=== PATIENT | female | born 1995 | race Hispanic/Latino ===

== ENCOUNTER 2016-10-24 18:11 | Emergency (ER) | payer MEDICAID ==
[2016-10-24 18:17] VITALS: BMI 37.3
[2016-10-24 18:21] VITALS: BP 127/90; PULSE 98; RESP 18; TEMP 98.6; O2SAT 100
[2016-10-24] MEDS ORDERED: TDAP Vaccine 0.5 mL Syr IM ONE (18:38)
--- NOTE | 2016-10-24 19:51 | ED PDOC ---
Arrival/HPI - General Historian: Patient - History of Present Illness Symptom Onset: Sudden Symptom Course: Unchanged Activities at Onset: Rest Context: Home <Thai Hunt - Last Filed: 10/24/16 19:55> <Mira Spivey PA-C - Last Filed: 10/24/16 20:08> - General Chief Complaint: Abnormal Skin Integrity Time Seen by Provider: 10/24/16 18:34 - History of Present Illness Narrative History of Present Illness (Text): 10/24/16 19:53 A 21 year old female presents to the emergency department complaining a tiny piece of glass embedded on right foot. Patient notes there was a broken glass plate on the floor and didn't notice it. Patient also notes her friend tried to take it out with no success. She reports no other injury, redness, discharge or numbness. Patient tetanus shot not up to date. Patient denies any other complaints at this time. (Thai Hunt) Associated Symptoms (Text): none (Thai Hunt) Past Medical History - Provider Review Nursing Documentation Reviewed: Yes - Infectious Disease Hx of Infectious Diseases: None - Tetanus Immunization Tetanus Immunization: Unknown - Past Medical History Past Medical History: No Previous - Cardiac Hx Cardiac Disorders: No - Pulmonary Hx Respiratory Disorders: No - Neurological Hx Neurological Disorder: No - HEENT Hx HEENT Disorder: No - Renal Hx Renal Disorder: No - Endocrine/Metabolic Hx Endocrine Disorders: Yes Other/Comment: borderline diabetic - Hematological/Oncological Hx Blood Disorders: Yes Hx Anemia: Yes - Integumentary Hx Dermatological Disorder: No - Musculoskeletal/Rheumatological Hx Musculoskeletal Disorders: Yes Other/Comment: left wrist sprain; casted a few years ago - Gastrointestinal Hx Gastrointestinal Disorders: No - Genitourinary/Gynecological Hx Genitourinary Disorders: No - Psychiatric Hx Psychophysiologic Disorder: Yes Hx Bipolar Disorder: Yes Hx Depression: Yes Hx Schizophrenia: Yes Hx Substance Use: No Other/Comment: schizo affective - Past Surgical History Past Surgical History: No Previous - Anesthesia Hx Anesthesia: No - Suicidal Assessment Feels Threatened In Home Enviroment: No <Thai Hunt - Last Filed: 10/24/16 19:55> Family/Social History - Physician Review Nursing Documentation Reviewed: Yes Family/Social History: No Known Family HX Smoking Status: Never Smoked Hx Alcohol Use: No Hx Substance Use: No Hx Substance Use Treatment: No <Thai Hunt - Last Filed: 10/24/16 19:55> Allergies/Home Meds <Thai Hunt - Last Filed: 10/24/16 19:55> <Mira Spivey PA-C - Last Filed: 10/24/16 20:08> Allergies/Adverse Reactions: Allergies No Known Allergies Allergy (Verified 10/24/16 18:16) Home Medications: Home Meds Medication Instructions Recorded Confirmed Benztropine Mesylate [Cogentin] 0.5 mg PO DAILY 04/13/12 10/24/16 Divalproex Sodium [Depakote] 1,000 mg PO QAM 04/13/12 10/24/16 Divalproex Sodium [Depakote] 1,000 mg PO HS 09/24/12 10/24/16 Paliperidone [Invega] 9 mg PO DAILY 01/24/13 10/24/16 Ergocalciferol [Vitamin D] 50,000 unit PO SUN 10/06/13 10/24/16 Lurasidone HCl [Latuda] 80 mg PO HS 10/06/13 10/24/16 Review of Systems - Physician Review All systems were reviewed & negative as marked: Yes - Review of Systems Constitutional: absent: Fevers Skin: absent: Other (R foot numbness, redness) Neurological: absent: Headache <Thai Hunt - Last Filed: 10/24/16 19:55> Physical Exam Vital Signs Reviewed: Yes Temperature: Afebrile Blood Pressure: Normal Pulse: Regular Respiratory Rate: Normal Appearance: Positive for: Well-Appearing, Non-Toxic, Comfortable Pain Distress: None Mental Status: Positive for: Alert and Oriented X 3 - Systems Exam Head: Present: Atraumatic, Normocephalic Pupils: Present: PERRL Extroacular Muscles: Present: EOMI Conjunctiva: Present: Normal Mouth: Present: Moist Mucous Membranes Neck: Present: Normal Range of Motion Respiratory/Chest: Present: Clear to Auscultation, Good Air Exchange. No: Respiratory Distress, Accessory Muscle Use Cardiovascular: Present: Regular Rate and Rhythm, Normal S1, S2. No: Murmurs Abdomen: Present: Normal Bowel Sounds. No: Tenderness, Distention, Peritoneal Signs Back: Present: Normal Inspection Upper Extremity: Present: Normal Inspection. No: Cyanosis, Edema Lower Extremity: Present: Normal Inspection. No: Edema Neurological: Present: GCS=15, CN II-XII Intact, Speech Normal Skin: Present: Warm, Dry, Normal Color. No: Rashes Psychiatric: Present: Alert, Oriented x 3, Normal Insight, Normal Concentration <Thai Hunt - Last Filed: 10/24/16 19:55> - Systems Exam Lower Extremity: Present: Other (R foot: (-) puncture wound noted, (-) FB seen, (-) tenderness, (-) edema, (-) erythema, (-) visible wound) <Mira Spivey PA-C - Last Filed: 10/24/16 20:08> Vital Signs Temp Pulse Resp BP Pulse Ox 10/24/16 18:20 98.6 F 98 H 18 127/90 100 Medical Decision Making <Thai Hunt - Last Filed: 10/24/16 19:55> <Mira Spivey PA-C - Last Filed: 10/24/16 20:08> ED Course and Treatment: 10/24/16 19:48 Impression: A 21 year old female with a tiny piece of glass embedded on right foot. No injury, redness, discharge, numbness. On physical exam, no glass spotted. Differential Diagnosis included but are not limited to: Plan: -- Radiology right foot -- POC urine preg, Boostrix Vaccine Inj -- Reassess and disposition Prior Visits: Notes and results from previous visits were reviewed. Patient last reported to the emergency department on 09/12/15 for evaluation of right lower leg cyst pain. Patient was advised to follow up with Dr. Santillan and discharged. Progress Notes: On re-evaluation, patient feels better and is in no acute distress. I have discussed the results and plan with the patient, who expresses understanding. Patient in agreement with plan to be discharged home. Patient is stable for discharge. Patient was instructed to follow up with physician or return if symptoms worsen or new concerning symptoms arise. (Thai Hunt) XR right foot : No foreign body, no fracture, no dislocation, as read by PA Patient advised that official radiology read of XR is still pending and will call the patient if there is any discrepancy within 24 hours. X-ray results discussed with the patient in great detail. Advised to return to the emergency room at any time for any new or worsening symptoms. (Mira Spivey PA-C) - RAD Interpretation Radiology Orders: 10/24/16 18:37 FOOT RIGHT 3 VIEWS ROUTINE [RAD] Stat - Medication Orders Current Medication Orders: Discontinued Medications Tetanus/Reduced Diphtheria/Acell Pertussis (Boostrix Vaccine Inj) 0.5 ml IM .ONCE ONE Stop: 10/24/16 18:39 Last Admin: 10/24/16 18:56 Dose: 0.5 ml - Scribe Statement The provider has reviewed the documentation as recorded by the Scribe <Thai Hunt - Last Filed: 10/24/16 19:55> - PA / SUPERVISOR VENEER / Resident Statement / has reviewed & agrees with the documentation as recorded. <Mira Spivey PA-C - Last Filed: 10/24/16 20:08> - Scribe Statement Meche Murillo Provider Scribe Attestation: All medical record entries made by the Scribe were at my direction and personally dictated by me. I have reviewed the chart and agree that the record accurately reflects my personal performance of the history, physical exam, medical decision making, and the department course for this patient. I have also personally directed, reviewed, and agree with the discharge instructions and disposition. (Thai Hunt) Disposition/Present on Arrival - Present on Arrival History of DVT/PE: No History of Uncontrolled Diabetes: No Urinary Catheter: No History of Decub. Ulcer: No History Surgical Site Infection Following: None <Thai Hunt - Last Filed: 10/24/16 19:55> - Present on Arrival Any Indicators Present on Arrival: No History of DVT/PE: No History of Uncontrolled Diabetes: No Urinary Catheter: No History of Decub. Ulcer: No - Disposition Have Diagnosis and Disposition been Completed?: Yes Disposition Time: 19:30 Patient Plan: Discharge <Mira Spivey PA-C - Last Filed: 10/24/16 20:08> - Disposition Diagnosis: Foot pain, right Disposition: HOME/ ROUTINE Condition: GOOD Discharge Instructions (ExitCare): Soft Tissue Foreign Body (ED), Puncture Wound (ED) Print Language: TUNISIAN Additional Instructions: Thank you for letting us take care of you today. You were treated for puncture wound, concern for soft tissue foreign body. The emergency medical care you received today was directed at your acute symptoms. It may take several days for your symptoms to resolve. Return to the Emergency Department if your symptoms worsen, do not improve, or if you have any other problems. Please contact your doctor in 2 days for re-evaluation and follow up. Bring any paperwork you were given at discharge with you along with any medications you are taking to your follow up visit. Our treatment cannot replace ongoing medical care by a primary care provider (PCP) outside of the emergency department. Thank you for allowing the [facility] team to be part of your care today. Forms: WORK NOTE
--- NOTE | 2016-10-25 06:41 | RAD ---
PROCEDURE: Right Foot Radiographs. HISTORY: r/o FB COMPARISON: Right foot 06/18/2014 FINDINGS: BONES: Normal. No fracture. JOINTS: Normal. SOFT TISSUES: Normal. OTHER FINDINGS: None. IMPRESSION: Normal right foot radiographs.
== END 2016-10-24 19:52 | disposition home or self-care (01) ==
LOC: ED 18:11
DX: M79.671 Pain in right foot (principal); Z23 Encounter for immunization

== ENCOUNTER 2016-12-17 12:48 | Emergency (ER) | payer MEDICAID ==
[2016-12-17 12:55] VITALS: TEMP 98.5; O2SAT 98; BMI 36.6
--- NOTE | 2016-12-17 13:19 | ED PDOC ---
Arrival/HPI <Francisco Schulz T - Last Filed: 12/17/16 13:33> - General Historian: Patient <Gumaro Bronson A - Last Filed: 12/17/16 14:52> - General Chief Complaint: Lower Extremity Problem/Injury Time Seen by Provider: 12/17/16 12:53 - History of Present Illness Narrative History of Present Illness (Text): 12/17/16 13:16 21yo female who present with complaint of left ankle pain x one week. States she thinks she might have hit her ankle somewhere, when she had "charliehorse in the same leg a week ago". Did not take any medication. Pain with ambulation. Denies any other complaint. (Gumaro Bronson A) Past Medical History - Provider Review Nursing Documentation Reviewed: Yes - Infectious Disease Hx of Infectious Diseases: None - Tetanus Immunization Tetanus Immunization: Unknown - Past Medical History Past Medical History: No Previous - Cardiac Hx Cardiac Disorders: No - Pulmonary Hx Respiratory Disorders: Yes Hx Asthma: Yes - Neurological Hx Neurological Disorder: No - HEENT Hx HEENT Disorder: No - Renal Hx Renal Disorder: No - Endocrine/Metabolic Hx Endocrine Disorders: Yes Other/Comment: borderline diabetic - Hematological/Oncological Hx Blood Disorders: No Hx Anemia: No - Integumentary Hx Dermatological Disorder: No - Musculoskeletal/Rheumatological Hx Musculoskeletal Disorders: No - Gastrointestinal Hx Gastrointestinal Disorders: No - Genitourinary/Gynecological Hx Genitourinary Disorders: No - Psychiatric Hx Psychophysiologic Disorder: Yes Hx Bipolar Disorder: No Hx Depression: No Hx Schizophrenia: Yes Hx Substance Use: No - Past Surgical History Past Surgical History: No Previous - Surgical History Other/Comment: skin tumor removed from R go. - Anesthesia Hx Anesthesia: No - Suicidal Assessment Feels Threatened In Home Enviroment: No <Gumaro Bronson A - Last Filed: 12/17/16 14:52> Family/Social History - Physician Review Nursing Documentation Reviewed: Yes Family/Social History: Unknown Family HX Smoking Status: Never Smoked Hx Alcohol Use: No Hx Substance Use: No Hx Substance Use Treatment: No <Gumaro Bronson A - Last Filed: 12/17/16 14:52> Allergies/Home Meds <Francisco Schulz T - Last Filed: 12/17/16 13:33> <Gumaro Bronson A - Last Filed: 12/17/16 14:52> Allergies/Adverse Reactions: Allergies No Known Allergies Allergy (Verified 12/17/16 12:56) Home Medications: Home Meds Medication Instructions Recorded Confirmed Benztropine Mesylate [Cogentin] 0.5 mg PO DAILY 04/13/12 12/17/16 Divalproex Sodium [Depakote] 1,000 mg PO QAM 04/13/12 12/17/16 Divalproex Sodium [Depakote] 1,000 mg PO HS 09/24/12 12/17/16 Paliperidone [Invega] 9 mg PO DAILY 01/24/13 12/17/16 Depakote 250 mg PO QPM 02/03/13 12/17/16 Depakote 500 mg PO TID 02/03/13 12/17/16 Invega 12 mg PO DAILY 02/03/13 12/17/16 Benztropine Mesylate [Cogentin] 1 tab PO DAILY 06/01/13 12/17/16 Meloxicam [Meloxicam] 1 tab PO BID 06/01/13 12/17/16 Ergocalciferol [Vitamin D] 50,000 unit PO SUN 10/06/13 12/17/16 Lurasidone HCl [Latuda] 80 mg PO HS 10/06/13 12/17/16 Review of Systems - Physician Review All systems were reviewed & negative as marked: Yes - Review of Systems Constitutional: Normal Eyes: Normal ENT: Normal Respiratory: Normal Cardiovascular: Normal Gastrointestinal: Normal Genitourinary Female: Normal Musculoskeletal: Arthralgias (LEft ankle) Skin: Normal Neurological: Normal Endocrine: Normal Hemo/Lymphatic: Normal Psychiatric: Normal <Diru,Happiness A - Last Filed: 12/17/16 14:52> Physical Exam Vital Signs Reviewed: Yes Temperature: Afebrile Blood Pressure: Normal Pulse: Regular Respiratory Rate: Normal Appearance: Positive for: Well-Appearing, Non-Toxic, Comfortable Pain Distress: None Mental Status: Positive for: Alert and Oriented X 3 - Systems Exam Head: Present: Atraumatic, Normocephalic Pupils: Present: PERRL Extroacular Muscles: Present: EOMI Conjunctiva: Present: Normal Mouth: Present: Moist Mucous Membranes Neck: Present: Normal Range of Motion Respiratory/Chest: Present: Clear to Auscultation, Good Air Exchange. No: Respiratory Distress, Accessory Muscle Use Cardiovascular: Present: Regular Rate and Rhythm, Normal S1, S2. No: Murmurs Abdomen: Present: Normal Bowel Sounds. No: Tenderness, Distention, Peritoneal Signs Back: Present: Normal Inspection Upper Extremity: Present: Normal Inspection. No: Cyanosis, Edema Lower Extremity: Present: NORMAL PULSES, Normal ROM, Tenderness (LEft ankle), Neurovascularly Intact. No: Edema, Swelling, Erythema, Deformity, Temperature Abnormalties Neurological: Present: GCS=15, CN II-XII Intact, Speech Normal Skin: Present: Warm, Dry, Normal Color. No: Rashes Psychiatric: Present: Alert, Oriented x 3, Normal Insight, Normal Concentration <Gumaro Bronson A - Last Filed: 12/17/16 14:52> Vital Signs Temp Pulse Resp BP Pulse Ox 12/17/16 12:55 98.5 F 99 H 19 137/80 98 Medical Decision Making <Francisco Schulz Leda - Last Filed: 12/17/16 13:33> <Gumaro Bronson A - Last Filed: 12/17/16 14:52> ED Course and Treatment: 12/17/16 13:34 Left ankle xray - No acute fracture/dislcoation Result was DW the pt. She was DC home with ibuprofen rx and referred to her PMD. (Gumaro Bronson A) - RAD Interpretation Radiology Orders: 12/17/16 13:14 ANKLE LEFT 3 VIEWS ROUTINE [RAD] Stat - Medication Orders Current Medication Orders: Discontinued Medications Ibuprofen (Motrin Tab) 600 mg PO STAT STA Stop: 12/17/16 13:16 - PA / HYDRO EXCAVATION OPERATOR / Resident Statement CHIP has reviewed & agrees with the documentation as recorded. CHIP has examined the patient and agrees with the treatment plan. <Francisco Schulz - Last Filed: 12/17/16 13:33> Disposition/Present on Arrival <[facility] Hospital[facility] - Last Filed: 12/17/16 13:33> - Present on Arrival Any Indicators Present on Arrival: No History of DVT/PE: No History of Uncontrolled Diabetes: No Urinary Catheter: No History of Decub. Ulcer: No History Surgical Site Infection Following: None - Disposition Have Diagnosis and Disposition been Completed?: Yes Disposition Time: 14:30 Patient Plan: Discharge <Gumaro Bronson A - Last Filed: 12/17/16 14:52> - Disposition Diagnosis: Sprain of ankle Disposition: HOME/ ROUTINE Patient Problems: Current Active Problems Problem Status Onset Sprain of ankle Acute Condition: STABLE Discharge Instructions (ExitCare): Arthralgia (ED) Additional Instructions: Follow up with your Doctor Return to ED for any new or worsening symptoms Prescriptions: Ibuprofen [Motrin Tab] 600 mg PO Q6 #20 tab Referrals: PCP,NO [Primary Care Provider] - Follow up with primary
--- NOTE | 2016-12-17 14:47 | RAD ---
PROCEDURE: Left Ankle Radiographs. HISTORY: ankle pain COMPARISON: None FINDINGS: BONES: Normal. No fracture. JOINTS: Normal. No osteoarthritis. Ankle mortise maintained. Talar dome intact SOFT TISSUES: Normal. OTHER FINDINGS: None. IMPRESSION: Normal left ankle radiographs.
[2016-12-17 14:59] VITALS: BP 135/77; PULSE 87; RESP 18
== END 2016-12-17 14:58 | disposition home or self-care (01) ==
LOC: ED 12:48
DX: S93.402A Sprain of unspecified ligament of left ankle, initial encounter (principal); X58.XXXA Exposure to other specified factors, initial encounter; Y92.9 Unspecified place or not applicable

== ENCOUNTER 2017-01-09 13:17 | Emergency (ER) | payer MEDICAID ==
[2017-01-09 13:18] VITALS: BMI 36.6
[2017-01-09 13:21] VITALS: BP 124/85; PULSE 104; RESP 20; TEMP 98.7; O2SAT 99
--- NOTE | 2017-01-09 13:43 | ED PDOC ---
Arrival/HPI - General Historian: Patient - History of Present Illness Symptom Onset: Gradual Symptom Course: Worsening Quality: Aching Severity Level: 4 Activities at Onset: Eating <Rg Spence - Last Filed: 01/09/17 13:51> <Wilbert Moreno - Last Filed: 01/09/17 14:06> - General Chief Complaint: ENT Problem Time Seen by Provider: 01/09/17 13:25 - History of Present Illness Narrative History of Present Illness (Text): 01/09/17 13:47 21yo F with PMHx of schizoaffective disorder here for evaluation of sore throat. Patient states that the sore throat started last night after she ate dinner. She went to sleep and woke up with worse sore throat. She states that she has trouble with swallowing solids. Denies any problem with liquids. Denies fevers or chills. No chest pain, no Shortness of breath. No Nausea, no Vomiting , no abd pain. No diarrhea. No headaches.Denies any sick contacts. (Rg Spence) Past Medical History - Provider Review Nursing Documentation Reviewed: Yes - Infectious Disease Hx of Infectious Diseases: None - Tetanus Immunization Tetanus Immunization: Unknown - Past Medical History Past Medical History: No Previous - Cardiac Hx Cardiac Disorders: No - Pulmonary Hx Respiratory Disorders: Yes Hx Asthma: Yes - Neurological Hx Neurological Disorder: No - HEENT Hx HEENT Disorder: No - Renal Hx Renal Disorder: No - Endocrine/Metabolic Hx Endocrine Disorders: Yes Other/Comment: borderline diabetic - Hematological/Oncological Hx Blood Disorders: No Hx Anemia: No - Integumentary Hx Dermatological Disorder: No - Musculoskeletal/Rheumatological Hx Musculoskeletal Disorders: No - Gastrointestinal Hx Gastrointestinal Disorders: No - Genitourinary/Gynecological Hx Genitourinary Disorders: No - Psychiatric Hx Psychophysiologic Disorder: Yes Hx Bipolar Disorder: No Hx Depression: No Hx Schizophrenia: Yes Hx Substance Use: No - Past Surgical History Past Surgical History: No Previous - Surgical History Other/Comment: skin tumor removed from R go. - Anesthesia Hx Anesthesia: No - Suicidal Assessment Feels Threatened In Home Enviroment: No <Rg Spence - Last Filed: 01/09/17 13:51> Family/Social History - Physician Review Nursing Documentation Reviewed: Yes Family/Social History: No Known Family HX Smoking Status: Never Smoked Hx Alcohol Use: No Hx Substance Use: No Hx Substance Use Treatment: No <Rg Spence - Last Filed: 01/09/17 13:51> Allergies/Home Meds <Rg Spence - Last Filed: 01/09/17 13:51> <Wilbert Moreno - Last Filed: 01/09/17 14:06> Allergies/Adverse Reactions: Allergies No Known Allergies Allergy (Verified 12/17/16 12:56) Home Medications: Home Meds Medication Instructions Recorded Confirmed Benztropine Mesylate [Cogentin] 0.5 mg PO DAILY 04/13/12 01/09/17 Divalproex Sodium [Depakote] 1,000 mg PO QAM 04/13/12 01/09/17 Divalproex Sodium [Depakote] 1,000 mg PO HS 09/24/12 01/09/17 Paliperidone [Invega] 9 mg PO DAILY 01/24/13 01/09/17 Depakote 250 mg PO QPM 02/03/13 01/09/17 Depakote 500 mg PO TID 02/03/13 01/09/17 Invega 12 mg PO DAILY 02/03/13 01/09/17 Benztropine Mesylate [Cogentin] 1 tab PO DAILY 06/01/13 01/09/17 Meloxicam [Meloxicam] 1 tab PO BID 06/01/13 01/09/17 Ergocalciferol [Vitamin D] 50,000 unit PO SUN 10/06/13 01/09/17 Lurasidone HCl [Latuda] 80 mg PO HS 10/06/13 01/09/17 Review of Systems - Physician Review All systems were reviewed & negative as marked: Yes - Review of Systems Constitutional: absent: Fevers Respiratory: absent: SOB, Cough, Wheezing Cardiovascular: absent: Chest Pain, Edema, Calf Pain, [place] Gastrointestinal: absent: Abdominal Pain, Nausea, Vomiting Genitourinary Female: absent: Dysuria, Frequency Musculoskeletal: absent: Back Pain Neurological: absent: Headache, Dizziness Endocrine: absent: Diaphoresis Psychiatric: absent: Anxiety, Depression <Luanne Spencey - Last Filed: 01/09/17 13:51> Physical Exam Vital Signs Reviewed: Yes Temperature: Afebrile Blood Pressure: Normal Pulse: Tachycardic Respiratory Rate: Normal Appearance: Positive for: Well-Appearing, Non-Toxic, Comfortable Pain Distress: Mild Mental Status: Positive for: Alert and Oriented X 3 - Systems Exam Head: Present: Atraumatic, Normocephalic Extroacular Muscles: Present: EOMI Ears: Present: Normal Mouth: Present: Moist Mucous Membranes, Normal Tounge, Normal Teeth Pharnyx: Present: ERYTHEMA, EXUDATE, TONSILS ENLARGED Neck: Present: Normal Range of Motion, Lymphadenopathy. No: JVD Respiratory/Chest: Present: Clear to Auscultation, Good Air Exchange. No: Respiratory Distress, Accessory Muscle Use, Wheezes Cardiovascular: Present: Normal S1, S2 Abdomen: No: Tenderness, Distention, Rebound, Guarding Back: Present: Normal Inspection Upper Extremity: Present: Normal Inspection. No: Edema Lower Extremity: Present: Normal Inspection. No: Edema, CALF TENDERNESS Neurological: Present: GCS=15 Skin: Present: Warm, Dry, Normal Color. No: Rashes Psychiatric: Present: Alert, Oriented x 3 <Rg Spence - Last Filed: 01/09/17 13:51> Medical Decision Making <Rg Spence - Last Filed: 01/09/17 13:51> <Wilbert Moreno - Last Filed: 01/09/17 14:06> ED Course and Treatment: 01/09/17 13:57 21yo F with Pharyngitis - Centor criteria postive for 3 points - Plan for Discharge on PO Amoxicillin, Ibuprofen and OTC chloraseptic - Discussed plan with patient, who understands and agrees. All questions and concerns addressed. (Rg Spence) Patient Seen With Resident: In agreement with resident note which contains more details about the patient. Patient was seen and evaluated with resident. Came up with plan and treatment together. A 21 year old female with tonsillitis, no evidence of river captain, well appearing, centor score 3 out of 4. Will discharge on amoxicillin and ibuprofen and f/u. (Wilbert Moreno) - PA / CUTLET MAKER PORK / Resident Statement CHIP has reviewed & agrees with the documentation as recorded. CHIP has examined the patient and agrees with the treatment plan. <Rg Spence - Last Filed: 01/09/17 13:51> - Scribe Statement The provider has reviewed the documentation as recorded by the Scribe <Wilbert Moreno - Last Filed: 01/09/17 14:06> - Scribe Statement Meche Murillo Provider Scribe Attestation: All medical record entries made by the Scribe were at my direction and personally dictated by me. I have reviewed the chart and agree that the record accurately reflects my personal performance of the history, physical exam, medical decision making, and the department course for this patient. I have also personally directed, reviewed, and agree with the discharge instructions and disposition. (Wilbert Moreno) Disposition/Present on Arrival - Present on Arrival Any Indicators Present on Arrival: No History of DVT/PE: No History of Uncontrolled Diabetes: No Urinary Catheter: No History of Decub. Ulcer: No History Surgical Site Infection Following: None - Disposition Have Diagnosis and Disposition been Completed?: Yes Disposition Time: 13:36 Patient Plan: Discharge <Rg Spence - Last Filed: 01/09/17 13:51> <Wilbert Moreno - Last Filed: 01/09/17 14:06> - Disposition Diagnosis: Pharyngitis Disposition: HOME/ ROUTINE Patient Problems: Current Active Problems Problem Status Onset Pharyngitis Acute Condition: GOOD Discharge Instructions (ExitCare): Pharyngitis (ED) Additional Instructions: 1. Follow up with your Primary Care Physician BASHIR. 2. Take antibiotics as directed to completion 3. Take Ibuprofen as need for pain relief 4. Use OTC Chloraseptic spray for sore throat as needed for pain relief 5. Stay well hydrated 6. Return to the ER with any concerning or worsening symptoms Prescriptions: Amoxicillin [Amoxil 500 mg Cap] 500 mg PO TID #30 cap Ibuprofen [Motrin Tab] 400 mg PO Q8 PRN #25 tab PRN Reason: Pain, Mild (1-3) Referrals: PCP,NO [Primary Care Provider] - Follow up with primary Forms: Epoch (German)
== END 2017-01-09 14:09 | disposition home or self-care (01) ==
LOC: ED 13:17
DX: J02.9 Acute pharyngitis, unspecified (principal)

== ENCOUNTER 2017-02-16 17:24 | Emergency (ER) | payer MEDICAID ==
[2017-02-16 17:25] VITALS: BMI 36.6
[2017-02-16 17:39] VITALS: TEMP 98.8
--- NOTE | 2017-02-16 18:01 | ED PDOC ---
Arrival/HPI - General Chief Complaint: Female Genitourinary Time Seen by Provider: 02/16/17 17:53 Historian: Patient - History of Present Illness Narrative History of Present Illness (Text): 02/16/17 17:58 This 21 yo female presents to this ED c/o urinary frequency, hematuria, vaginal bleeding x 2 weeks. Patient denies sob, fever, abdominal pain, n/v, or abnormal gait. Time/Duration: Other (see hpi) Context: Home Past Medical History - Provider Review Nursing Documentation Reviewed: Yes - Infectious Disease Hx of Infectious Diseases: None - Tetanus Immunization Tetanus Immunization: Unknown - Past Medical History Past Medical History: No Previous - Cardiac Hx Cardiac Disorders: No - Pulmonary Hx Respiratory Disorders: Yes Hx Asthma: Yes - Neurological Hx Neurological Disorder: No - HEENT Hx HEENT Disorder: No - Renal Hx Renal Disorder: No - Endocrine/Metabolic Hx Endocrine Disorders: Yes Other/Comment: borderline diabetic - Hematological/Oncological Hx Blood Disorders: No Hx Anemia: No - Integumentary Hx Dermatological Disorder: No - Musculoskeletal/Rheumatological Hx Musculoskeletal Disorders: No - Gastrointestinal Hx Gastrointestinal Disorders: No - Genitourinary/Gynecological Hx Genitourinary Disorders: No - Psychiatric Hx Psychophysiologic Disorder: Yes Hx Bipolar Disorder: Yes Hx Depression: No Hx Schizophrenia: Yes Hx Substance Use: No Other/Comment: bipolar paranoid Schizo affective - Past Surgical History Past Surgical History: No Previous - Surgical History Other/Comment: skin tumor removed from R go. - Anesthesia Hx Anesthesia: No - Suicidal Assessment Feels Threatened In Home Enviroment: No Family/Social History - Physician Review Nursing Documentation Reviewed: Yes Family/Social History: Other (non-contributory) Smoking Status: Never Smoked Hx Alcohol Use: No Hx Substance Use: No Hx Substance Use Treatment: No Allergies/Home Meds Allergies/Adverse Reactions: Allergies No Known Allergies Allergy (Verified 02/16/17 17:39) Home Medications: Home Meds Medication Instructions Recorded Confirmed Benztropine Mesylate [Cogentin] 0.5 mg PO DAILY 04/13/12 01/09/17 Paliperidone [Invega] 9 mg PO DAILY 01/24/13 02/16/17 Depakote 500 mg PO BID 02/03/13 01/09/17 Ergocalciferol [Vitamin D] 50,000 unit PO SUN 10/06/13 01/09/17 Lurasidone HCl [Latuda] 80 mg PO HS 10/06/13 01/09/17 Review of Systems - Review of Systems Constitutional: Normal. absent: Fatigue, Weight Change, Fevers Eyes: Normal ENT: Normal Respiratory: Normal Cardiovascular: Normal Gastrointestinal: Normal Genitourinary Female: Dysuria, Frequency, Hematuria, Vaginal Bleeding, Other ( see hpi). absent: Vaginal Discharge Musculoskeletal: Normal Skin: Normal Neurological: Normal Endocrine: Normal Hemo/Lymphatic: Normal Psychiatric: Normal Physical Exam Vital Signs Temp Pulse Resp BP Pulse Ox 02/16/17 18:21 75 18 112/75 98 02/16/17 17:32 98.8 F 89 16 110/70 98 Temperature: Afebrile Blood Pressure: Normal Pulse: Regular Respiratory Rate: Normal Appearance: Positive for: Well-Appearing, Non-Toxic, Comfortable Pain Distress: None Mental Status: Positive for: Alert and Oriented X 3 - Systems Exam Head: Present: Atraumatic, Normocephalic Pupils: Present: PERRL Extroacular Muscles: Present: EOMI Conjunctiva: Present: Normal Mouth: Present: Moist Mucous Membranes Neck: Present: Normal Range of Motion Abdomen: Present: Normal Bowel Sounds. 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 No: Vaginal Bleeding, Vaginal Lesions, Adenexal Tenderness, Adenexal Mass Back: Present: Normal Inspection. No: CVA Tenderness Upper Extremity: Present: Normal Inspection, Normal ROM. No: Cyanosis, Edema Lower Extremity: Present: Normal Inspection, Normal ROM. No: Edema Neurological: Present: GCS=15, CN II-XII Intact, Speech Normal Skin: Present: Warm, Dry, Normal Color. No: Rashes Psychiatric: Present: Alert, Oriented x 3, Normal Insight, Normal Concentration Medical Decision Making - Lab Interpretations Lab Results: Lab Results 02/16/17 18:17: Urine Color Yellow, Urine Appearance Turbid, Urine pH 6.0, Ur Specific [place] 1.025, Urine Protein Trace H, Urine Glucose (UA) Negative, Urine Ketones Trace H, Urine Blood Large H, Urine Nitrate Negative, Urine Bilirubin Negative, Urine Urobilinogen 1.0 H, Ur Leukocyte Esterase Small H, Urine RBC 2 - 5, Urine WBC 5 - 10, Ur Epithelial Cells 10 - 12, Urine Bacteria Few - Medication Orders Current Medication Orders: Discontinued Medications Ceftriaxone Sodium (Rocephin) 250 mg IM STAT STA PRN Reason: Protocol Stop: 02/16/17 18:24 Last Admin: 02/16/17 19:08 Dose: 250 mg Metronidazole (Flagyl) 2,000 mg PO STAT STA PRN Reason: Protocol Stop: 02/16/17 18:25 Last Admin: 02/16/17 19:09 Dose: 2,000 mg Disposition/Present on Arrival - Present on Arrival Any Indicators Present on Arrival: No History of DVT/PE: No History of Uncontrolled Diabetes: No Urinary Catheter: No History of Decub. Ulcer: No History Surgical Site Infection Following: None - Disposition Have Diagnosis and Disposition been Completed?: Yes Diagnosis: Cervicitis Disposition: HOME/ ROUTINE Disposition Time: 19:36 Patient Plan: Discharge Patient Problems: Current Active Problems Problem Status Onset Cervicitis Acute Condition: GOOD Discharge Instructions (ExitCare): Cervicitis (ED) Additional Instructions: Call private doctor for follow up visit in 1-2 days. Take medication as instructed. Review urine test result in 3-5 days with your doctor . Return to emergency if symptoms worsen Prescriptions: Cephalexin [cephalexin] 500 mg PO BID #10 cap Doxycycline Monohydrate 100 mg PO BID #20 tablet Referrals: [facility] [Outside] - [facility] [Outside] - Follow up with primary Forms: [employer] (Bulgarian)
[2017-02-16] MEDS ORDERED: cefTRIAXone (Rocephin) 250 mg Inj IM STA (18:23)
[2017-02-16 18:28] VITALS: RESP 18
[2017-02-16 18:30] LABS: URINE BILIRUBIN NEGATIVE (NEGATIVE); URINE BLOOD LARGE (NEGATIVE); URINE GLUCOSE (UA) NEGATIVE (NEGATIVE); URINE KETONE TRACE mg/dL (NEGATIVE); URINE LEUKOCYTE ESTERASE SMALL Leu/uL (NEGATIVE); URINE PROTEIN TRACE mg/dL (<30 mg/dL)
[2017-02-16 18:33] LABS: URINE APPEARANCE TURBID (CLEAR); URINE COLOR YELLOW (YELLOW)
[2017-02-16 18:36] LABS: URINE BACTERIA FEW (NEG)
[2017-02-16 19:52] VITALS: BP 114/71; PULSE 69; O2SAT 99
== END 2017-02-16 19:53 | disposition home or self-care (01) ==
LOC: ED 17:24
DX: N72 Inflammatory disease of cervix uteri (principal)
CPT/HCPCS: 81001; 87086; 87491; 87591; 96372; 99283; J0696

== ENCOUNTER 2017-02-27 14:31 | Emergency (ER) | payer MEDICAID ==
[2017-02-27 14:47] VITALS: TEMP 98.9; BMI 36.3
[2017-02-27 15:15] LABS: URINE BILIRUBIN NEGATIVE (NEGATIVE); URINE BLOOD NEGATIVE (NEGATIVE); URINE GLUCOSE (UA) NEGATIVE (NEGATIVE); URINE KETONE TRACE mg/dL (NEGATIVE); URINE LEUKOCYTE ESTERASE NEGATIVE Leu/uL (NEGATIVE); URINE PROTEIN 30 mg/dL (<30 mg/dL)
[2017-02-27 15:32] LABS: URINE APPEARANCE CLEAR (CLEAR); URINE COLOR YELLOW (YELLOW)
[2017-02-27 15:34] LABS: URINE BACTERIA FEW (NEG); URINE RBC NEGATIVE /hpf (0-2); URINE WBC 0 - 2 /hpf (0-6)
--- NOTE | 2017-02-27 15:37 | ED PDOC ---
Arrival/HPI - General Chief Complaint: Female Genitourinary Time Seen by Provider: 02/27/17 14:46 Historian: Patient - History of Present Illness Narrative History of Present Illness (Text): The patient is a 21yo female, presents to the emergency department for evaluation of 1 month long persistent lower abdominal pain, associated with vaginal discharge, vaginal spotting and pain upon urination. Patient states she was seen here 2 weeks ago for the same sx and was discharged home with antibiotics. Patient states she has completed her antibiotics regimen but her symptoms are still present, prompting her visit today. 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 Patient denies any associated fever, chills , nausea, vomiting or diarrhea. She denies taking any medications for her pain and offers no additional medical complaints. Time/Duration: > month (1) Past Medical History - Provider Review Nursing Documentation Reviewed: Yes - Travel History Have you recently traveled outside [place] w/in the past 3 mons?: No - Infectious Disease Hx of Infectious Diseases: None - Tetanus Immunization Tetanus Immunization: Unknown - Past Medical History Past Medical History: No Previous - Cardiac Hx Cardiac Disorders: No - Pulmonary Hx Respiratory Disorders: Yes Hx Asthma: Yes - Neurological Hx Neurological Disorder: No - HEENT Hx HEENT Disorder: No - Renal Hx Renal Disorder: No - Endocrine/Metabolic Hx Endocrine Disorders: Yes Other/Comment: borderline diabetic - Hematological/Oncological Hx Blood Disorders: No Hx Anemia: No - Integumentary Hx Dermatological Disorder: No - Musculoskeletal/Rheumatological Hx Musculoskeletal Disorders: No - Gastrointestinal Hx Gastrointestinal Disorders: No - Genitourinary/Gynecological Hx Genitourinary Disorders: No - Psychiatric Hx Psychophysiologic Disorder: Yes Hx Bipolar Disorder: Yes Hx Depression: No Hx Schizophrenia: Yes Hx Substance Use: No Other/Comment: bipolar paranoid Schizo affective - Past Surgical History Past Surgical History: No Previous - Surgical History Other/Comment: skin tumor removed from R go. - Anesthesia Hx Anesthesia: No Hx Anesthesia Reactions: No - Suicidal Assessment Feels Threatened In Home Enviroment: No Family/Social History - Physician Review Nursing Documentation Reviewed: Yes Family/Social History: Other (non contributing) Smoking Status: Never Smoked Hx Alcohol Use: No Hx Substance Use: No Hx Substance Use Treatment: No Allergies/Home Meds Allergies/Adverse Reactions: Allergies No Known Allergies Allergy (Verified 02/27/17 14:42) Home Medications: Home Meds Medication Instructions Recorded Confirmed Benztropine Mesylate [Cogentin] 0.5 mg PO DAILY 04/13/12 02/27/17 Paliperidone [Invega] 9 mg PO DAILY 01/24/13 02/27/17 Depakote 500 mg PO BID 02/03/13 02/27/17 Lurasidone HCl [Latuda] 80 mg PO HS 10/06/13 02/27/17 Review of Systems - Review of Systems Constitutional: absent: Fevers Respiratory: absent: SOB, Cough Cardiovascular: absent: Chest Pain Gastrointestinal: Abdominal Pain (lower abdomen pain) Genitourinary Female: Dysuria, Vaginal Bleeding, Vaginal Discharge Neurological: absent: Headache, Dizziness Physical Exam Vital Signs Reviewed: Yes Vital Signs Temp Pulse Resp BP Pulse Ox 02/27/17 18:16 85 16 142/82 100 02/27/17 14:42 98.9 F 99 H 17 144/69 97 Appearance: Positive for: Non-Toxic Mental Status: Positive for: Alert and Oriented X 3 - Systems Exam Head: Present: Atraumatic, Normocephalic Pupils: Present: PERRL Mouth: Present: Moist Mucous Membranes Respiratory/Chest: Present: Clear to Auscultation Cardiovascular: Present: Regular Rate and Rhythm Abdomen: Present: Tenderness (diffuse lower abdomen tenderness). No: Distention Upper Extremity: Present: Normal Inspection Lower Extremity: Present: Normal Inspection Neurological: Present: GCS=15, Speech Normal Psychiatric: Present: Alert, Oriented x 3 Medical Decision Making ED Course and Treatment: 02/27/17 17:11 HISTORY: pelvic pain COMPARISON: None available. TECHNIQUE: Transvaginal pelvic ultrasound was performed. FINDINGS: UTERUS: Measures 8.8 x 4.9 x 5.9 cm. Anteverted, normal in size and appearance. No fibroid or other mass lesion seen. ENDOMETRIUM: Measures 19 mm in diameter. There is heterogeneous central endometrial echo complex without increased vascularity. CERVIX: No cervical abnormality identified. RIGHT OVARY: Measures 4.9 x 3.5 x 5.0 cm. No solid mass. Normal flow. There is a 2.7 x 2.0 x 2.2 cm simple cyst. LEFT OVARY: Measures 4.0 x 2.0 x 3.4 cm. No solid mass. Normal flow. FREE FLUID: There is a small amount of free fluid noted. OTHER FINDINGS: None. IMPRESSION: 2.7 cm simple cyst in the right ovary. Small amount of free fluid in the pelvis which may be physiologic. - Lab Interpretations Lab Results: 02/27/17 16:15 02/27/17 16:35 Lab Results 02/27/17 16:35: Sodium 142, Potassium 4.0, Chloride 107, Carbon Dioxide 26, Anion Gap 13, BUN 9, Creatinine 0.6, Est GFR ( Amer) > 60, Est GFR (Non- Af Amer) > 60, Random Glucose 83, Calcium 8.7, Total Bilirubin 0.3, AST 26, ALT 23, Alkaline Phosphatase 35 L, Total Protein 6.6, Albumin 3.7, Globulin 2.9, Albumin/Globulin Ratio 1.3 02/27/17 16:15: WBC 7.2, RBC 3.90, Hgb 11.6 L, Hct 34.7 L, MCV 89.0, MCH 29.7, MCHC 33.4, RDW 13.9, Plt Count 218, MPV 11.5 H, Gran % 61.5, Lymph % (Auto) 26.8 , Dawson % (Auto) 9.4 H, Eos % (Auto) 1.7, Baso % (Auto) 0.6, Gran # 4.41, Lymph # 1.9, Dawson # 0.7 H, Eos # 0.1, Baso # 0.04 02/27/17 14:57: Urine Color Yellow, Urine Appearance Clear, Urine pH 6.0, Ur Specific [place] >= 1.030, Urine Protein 30 H, Urine Glucose (UA) Negative, Urine Ketones Trace H, Urine Blood Negative, Urine Nitrate Negative, Urine Bilirubin Negative, Urine Urobilinogen 1.0 H, Ur Leukocyte Esterase Negative, Urine RBC Negative, Urine WBC 0 - 2, Ur Epithelial Cells 3 - 4, Urine Bacteria Few, Urine HCG, Qual Negative - RAD Interpretation Radiology Orders: 02/27/17 15:32 TRANSVAGINAL [US] Stat - Medication Orders Current Medication Orders: Discontinued Medications Acetaminophen (Tylenol 325mg Tab) 975 mg PO STAT STA Stop: 02/27/17 15:33 Last Admin: 02/27/17 16:29 Dose: 975 mg MAR Pain/Vitals Document 02/27/17 16:29 HI (Rec: 02/27/17 16:30 [place] [facility] [id number]) Pain Reassessment Is This A Pain ReAssessment? Yes Sleep Is patient sleeping during reassessment? No Ketorolac Tromethamine (Toradol) 10 mg IVP STAT STA Stop: 02/27/17 15:33 Last Admin: 02/27/17 16:30 Dose: 10 mg MAR Pain Assessment Document 02/27/17 16:30 HI (Rec: 02/27/17 16:30 HI [facility] [id number]) Pain Reassessment Is this a pain reassessment? Yes Sleep Is patient sleeping during reassessment? No Presence of Pain Presence of Pain Yes IVP Administration Document 02/27/17 16:30 HI (Rec: 02/27/17 16:30 HI [facility] [id number]) Charges for Administration # of IVP Administrations 1 - Scribe Statement The provider has reviewed the documentation as recorded by the Veronica Clemons Provider Attestation: All medical record entries made by the Rachelibajay were at my direction and personally dictated by me. I have reviewed the chart and agree that the record accurately reflects my personal performance of the history, physical exam, medical decision making, and the department course for this patient. I have also personally directed, reviewed, and agree with the discharge instructions and disposition. Disposition/Present on Arrival - Present on Arrival Any Indicators Present on Arrival: No History of DVT/PE: No History of Uncontrolled Diabetes: No Urinary Catheter: No History of Decub. Ulcer: No History Surgical Site Infection Following: None - Disposition Have Diagnosis and Disposition been Completed?: Yes Diagnosis: Pelvic pain, Dysfunctional uterine bleeding Disposition: HOME/ ROUTINE Disposition Time: 18:04 Condition: STABLE Discharge Instructions (ExitCare): Dysfunctional Uterine Bleeding (ED) Additional Instructions: Please follow up with an OBGYN doctor. Return to the ER for any worsening symptoms or for any other concerns. Prescriptions: Ibuprofen [Motrin Tab] 600 mg PO Q6H PRN #10 tab PRN Reason: Pain, Moderate (4-7) Referrals: Tessa Hansen MD [Primary Care Provider] - Follow up with primary Forms: [employer] (Korean)
[2017-02-27 16:25] LABS: BASO # 0.04 K/mm3 (0.0-2.0); BASO % 0.6 % (0.0-3.0); EOS # 0.1 (0.0-0.7); EOS % 1.7 % (1.5-5.0); GRAN # 4.41 (1.4-6.5); GRAN % 61.5 % (50.0-68.0); HEMATOCRIT 34.7 % (36.0-48.0); LYMPH # 1.9 (1.2-3.4); LYMPH % 26.8 % (22.0-35.0); MEAN CORPUSCULAR HEMOGLOBIN 29.7 pg (25.0-35.0); MEAN CORPUSCULAR HGB CONC 33.4 g/dl (31.0-37.0); MEAN PLATELET VOLUME 11.5 fl (7.0-11.0); MONO # 0.7 (0.1-0.6); MONO % 9.4 % (1.0-6.0); RED CELL DISTRIBUTION WIDTH 13.9 % (11.5-14.5); WHITE BLOOD COUNT 7.2 10^3/ul (4.5-11.0)
[2017-02-27 16:59] LABS: ALB/GLOB RATIO 1.3 (1.1-1.8); ALKALINE PHOSPHATASE 35 U/L (38-126); ALT/SGPT 23 U/L (7-56); AST/SGOT 26 U/L (14-36); BILIRUBIN,TOTAL 0.3 mg/dL (0.2-1.3); BLOOD UREA NITROGEN 9 mg/dL (7-21); CALCIUM 8.7 mg/dL (8.4-10.5); CARBON DIOXIDE 26 mmol/L (21-33); CHLORIDE 107 mmol/L (98-107); GFR AFRICAN-AMERICAN > 60; GLUCOSE,RANDOM 83 mg/dL (70-110); SODIUM 142 mmol/L (132-148); TOTAL PROTEIN 6.6 g/dL (5.8-8.3)
--- NOTE | 2017-02-27 17:13 | US ---
HISTORY: pelvic pain COMPARISON: None available. TECHNIQUE: Transvaginal pelvic ultrasound was performed. FINDINGS: UTERUS: Measures 8.8 x 4.9 x 5.9 cm. Anteverted, normal in size and appearance. No fibroid or other mass lesion seen. ENDOMETRIUM: Measures 19 mm in diameter. There is heterogeneous central endometrial echo complex without increased vascularity. CERVIX: No cervical abnormality identified. RIGHT OVARY: Measures 4.9 x 3.5 x 5.0 cm. No solid mass. Normal flow. There is a 2.7 x 2.0 x 2.2 cm simple cyst. LEFT OVARY: Measures 4.0 x 2.0 x 3.4 cm. No solid mass. Normal flow. FREE FLUID: There is a small amount of free fluid noted. OTHER FINDINGS: None. IMPRESSION: 2.7 cm simple cyst in the right ovary. Small amount of free fluid in the pelvis which may be physiologic.
[2017-02-27 18:20] VITALS: BP 142/82; PULSE 85; RESP 16; O2SAT 100
== END 2017-02-27 18:20 | disposition home or self-care (01) ==
LOC: ED 14:31
DX: N93.8 Other specified abnormal uterine and vaginal bleeding (principal); R10.2 Pelvic and perineal pain
CPT/HCPCS: 76830; 80053; 81001; 84703; 85025; 87491; 87591; 96374; 99284; J1885

== ENCOUNTER 2017-07-07 16:21 | Emergency (ER) | payer MEDICAID ==
[2017-07-07 16:26] VITALS: BMI 36.6
[2017-07-07 16:29] VITALS: TEMP 97.8
[2017-07-07 17:42] LABS: PH,URINE 7.5 (4.7-8.0); URINE BILIRUBIN NEGATIVE (NEGATIVE); URINE BLOOD LARGE (NEGATIVE); URINE GLUCOSE (UA) NEGATIVE (NEGATIVE); URINE LEUKOCYTE ESTERASE NEGATIVE Leu/uL (NEGATIVE); URINE NITRATE NEGATIVE (NEGATIVE); URINE PROTEIN 30 mg/dL (<30 mg/dL); URINE UROBILINOGEN 0.2 E.U./dL (<1 E.U./dL)
[2017-07-07 17:43] LABS: URINE APPEARANCE SL CLOUDY (CLEAR); URINE COLOR LIGHT RED (YELLOW)
[2017-07-07 17:49] LABS: URINE RBC TNTC /hpf (0-2)
[2017-07-07 17:50] LABS: URINE BACTERIA FEW (NEG)
--- NOTE | 2017-07-07 18:43 | US ---
HISTORY: Abdominal pain/vaginal bleeding COMPARISON: Transvaginal pelvic ultrasound performed 02/27/17 TECHNIQUE: Transvaginal pelvic ultrasound FINDINGS: UTERUS: Measures 8.4 x 4.4 x 5.9 cm. Retroverted. Cervix length measures approximately 3.4 cm. ENDOMETRIUM: Measures 9 mm in diameter. CERVIX: No cervical abnormality identified. RIGHT OVARY: Measures 3.7 x 3.0 x 4.0 cm. Blood flow is demonstrated. LEFT OVARY: Measures 3.4 x 3.0 x 3.7 cm. Blood flow is demonstrated. FREE FLUID: Small fluid adjacent to the right ovary. OTHER FINDINGS: None. IMPRESSION: Small fluid adjacent to the right ovary.
--- NOTE | 2017-07-07 19:33 | ED PDOC ---
Arrival/HPI - General Chief Complaint: Female Genitourinary Time Seen by Provider: 07/07/17 16:42 Historian: Patient - History of Present Illness Narrative History of Present Illness (Text): 07/07/17 19:30 21yo female with history of Schizoaffective disorder present with complaint of vaginal bleeding and right pelvic pain. States her period started a week ago, stoped 2days ago and started again after sex with the [pain she is currently having. States she was seen here the last time she had similar symptoms and she was told she had ovarian cyst. States her SOCIAL WORK SUPERVISOR told her to go back to the ED if she started having similar symptoms again. She denies urinary symptoms, nausea, vomiting, diarrhea, constipation, back pain, any other complaint. Past Medical History - Provider Review Nursing Documentation Reviewed: Yes - Infectious Disease Hx of Infectious Diseases: None - Tetanus Immunization Tetanus Immunization: Unknown - Past Medical History Past Medical History: No Previous - Cardiac Hx Cardiac Disorders: No - Pulmonary Hx Respiratory Disorders: Yes Hx Asthma: Yes - Neurological Hx Neurological Disorder: No - HEENT Hx HEENT Disorder: No - Renal Hx Renal Disorder: No - Endocrine/Metabolic Hx Endocrine Disorders: Yes Other/Comment: borderline diabetic - Hematological/Oncological Hx Blood Disorders: No Hx Anemia: No - Integumentary Hx Dermatological Disorder: No - Musculoskeletal/Rheumatological Hx Musculoskeletal Disorders: No - Gastrointestinal Hx Gastrointestinal Disorders: No - Genitourinary/Gynecological Hx Genitourinary Disorders: No - Psychiatric Hx Psychophysiologic Disorder: Yes Hx Bipolar Disorder: Yes Hx Depression: No Hx Schizophrenia: Yes Hx Substance Use: No Other/Comment: bipolar paranoid Schizo affective - Past Surgical History Past Surgical History: No Previous - Surgical History Other/Comment: skin tumor removed from R go. - Anesthesia Hx Anesthesia: No Hx Anesthesia Reactions: No - Suicidal Assessment Feels Threatened In Home Enviroment: No Family/Social History - Physician Review Nursing Documentation Reviewed: Yes Family/Social History: Unknown Family HX Smoking Status: Never Smoked Hx Alcohol Use: No Hx Substance Use: No Hx Substance Use Treatment: No Allergies/Home Meds Allergies/Adverse Reactions: Allergies No Known Allergies Allergy (Verified 02/27/17 14:42) Home Medications: Home Meds Medication Instructions Recorded Confirmed Benztropine Mesylate [Cogentin] 0.5 mg PO DAILY 04/13/12 07/07/17 Paliperidone [Invega] 9 mg PO DAILY 01/24/13 07/07/17 Depakote 500 mg PO BID 02/03/13 07/07/17 Lurasidone HCl [Latuda] 80 mg PO HS 10/06/13 07/07/17 Benztropine [Cogentin] 1 tab PO DAILY 07/07/17 07/07/17 Famotidine [Pepcid] 1 tab PO BID 07/07/17 07/07/17 Review of Systems - Physician Review All systems were reviewed & negative as marked: Yes - Review of Systems Constitutional: Normal Eyes: Normal ENT: Normal Respiratory: Normal Cardiovascular: Normal Gastrointestinal: Abdominal Pain. absent: Constipation, Diarrhea, Nausea, Vomiting, Hematemesis Genitourinary Female: Vaginal Bleeding. absent: Dysuria, Frequency, Hematuria Musculoskeletal: Normal Skin: Normal Neurological: Normal Endocrine: Normal Hemo/Lymphatic: Normal Psychiatric: Normal Physical Exam Vital Signs Reviewed: Yes Vital Signs Temp Pulse Resp BP Pulse Ox 07/07/17 19:47 95 H 18 120/70 100 07/07/17 16:29 97.8 F 101 H 8 L 118/82 96 Temperature: Afebrile Blood Pressure: Normal Pulse: Regular Respiratory Rate: Normal Appearance: Positive for: Well-Appearing, Non-Toxic, Comfortable Pain Distress: None Mental Status: Positive for: Alert and Oriented X 3 - Systems Exam Head: Present: Atraumatic, Normocephalic Pupils: Present: PERRL Extroacular Muscles: Present: EOMI Conjunctiva: Present: Normal Mouth: Present: Moist Mucous Membranes Neck: Present: Normal Range of Motion Respiratory/Chest: Present: Clear to Auscultation, Good Air Exchange. No: Respiratory Distress, Accessory Muscle Use Cardiovascular: Present: Regular Rate and Rhythm, Normal S1, S2. No: Murmurs Abdomen: Present: Normal Bowel Sounds, Other (Soft). No: Tenderness, Distention , Peritoneal Signs, Rebound, Guarding, McBurney's Point Tender, Rovsing's Sign Present Genitourinary/Pelvic Exam: Present: Vaginal Bleeding (Small blood pooling in vault). No: Cervical Motion Tendernes Back: Present: Normal Inspection Upper Extremity: Present: Normal Inspection. No: Cyanosis, Edema Lower Extremity: Present: Normal Inspection. No: Edema Neurological: Present: GCS=15, CN II-XII Intact, Speech Normal Skin: Present: Warm, Dry, Normal Color. No: Rashes Psychiatric: Present: Alert, Oriented x 3, Normal Insight, Normal Concentration Medical Decision Making ED Course and Treatment: 07/08/17 00:05 PT is comfortable in ED. Hemodynamically stable. Transvaginal US ENDOMETRIUM: Measures 9 mm in diameter. CERVIX: No cervical abnormality identified. RIGHT OVARY: Measures 3.7 x 3.0 x 4.0 cm. Blood flow is demonstrated. LEFT OVARY: Measures 3.4 x 3.0 x 3.7 cm. Blood flow is demonstrated. FREE FLUID: Small fluid adjacent to the right ovary. OTHER FINDINGS: None. IMPRESSION: Small fluid adjacent to the right ovary. Pt's bleeding likley prolonged period. She have a SOCIAL WORK SUPERVISOR and was referred to her SOCIAL WORK SUPERVISOR. NSAID given for pain control and bleeding improvement. - Lab Interpretations Lab Results: Lab Results 07/07/17 17:13: Urine Color Light red, Urine Appearance Sl cloudy, Urine pH 7.5 , Ur Specific [place] 1.020, Urine Protein 30 H, Urine Glucose (UA) Negative, Urine Ketones Trace H, Urine Blood Large H, Urine Nitrate Negative, Urine Bilirubin Negative, Urine Urobilinogen 0.2, Ur Leukocyte Esterase Negative, Urine RBC Tntc, Urine WBC 1 - 3, Ur Epithelial Cells 3 - 4, Urine Bacteria Few - RAD Interpretation Radiology Orders: 07/07/17 16:59 TRANSVAGINAL [US] Stat - Medication Orders Current Medication Orders: Discontinued Medications Ketorolac Tromethamine (Toradol) 60 mg IM STAT STA Stop: 07/07/17 19:11 Last Admin: 07/07/17 19:51 Dose: 60 mg MAR Pain Assessment Document 07/07/17 19:51 (Rec: 07/07/17 20:00 [id number]) Pain Reassessment Is this a pain reassessment? Yes Presence of Pain Presence of Pain Yes Pain Scale Used Pain Scale Used Numeric Location Upper or Lower Lower Pain Location Body Site Abdomen Description Description Constant Intensity of Pain at present 9 IM Administration Charges Document 07/07/17 19:51 (Rec: 07/07/17 20:00 [id number]) Injection Site MAR Injection Site Right Gluteus Brayden Charges for Administration # of IM Administrations 1 Disposition/Present on Arrival - Present on Arrival Any Indicators Present on Arrival: No History of DVT/PE: No History of Uncontrolled Diabetes: No Urinary Catheter: No History of Decub. Ulcer: No History Surgical Site Infection Following: None - Disposition Have Diagnosis and Disposition been Completed?: Yes Diagnosis: Menorrhagia, Abdominal pain Disposition: HOME/ ROUTINE Disposition Time: 19:35 Patient Plan: Discharge Condition: STABLE Discharge Instructions (ExitCare): Abdominal Pain (ED), Menorrhagia (ED) Additional Instructions: Follow up with your SOCIAL WORK SUPERVISOR Return to ED for any new or worsening symptoms Prescriptions: Ibuprofen [Motrin Tab] 600 mg PO Q6 #20 tab Referrals: Abilio Tang, [Primary Care Provider] - Follow up with primary Refugio Damian MD [Staff Provider] - Follow up with primary Forms: [employer] (Wolof)
[2017-07-07 20:01] VITALS: BP 120/70; PULSE 95; RESP 18; O2SAT 100
== END 2017-07-07 20:10 | disposition home or self-care (01) ==
LOC: ED 16:21
DX: N92.0 Excessive and frequent menstruation with regular cycle (principal); R10.2 Pelvic and perineal pain; F25.9 Schizoaffective disorder, unspecified
CPT/HCPCS: 76830; 81001; 96372; 99284; J1885